=== PATIENT | male | born 1950 | race Caucasian/White ===

== ENCOUNTER 2017-02-08 18:03 | Inpatient (IN) ==
[2017-02-08] MEDS ORDERED: OXYCONTIN PO PRN (19:00)
[2017-02-08 19:48] LABS: MANUAL DIFF NEEDED? NO
[2017-02-08 19:55] LABS: BASO% 0.5 % (0.0-0.8); EOS# 0.01 X1000 (0.0-0.7); EOS% 0.3 % (0.0-10.0); HEMATOCRIT 29.2 % (42.0-52.0); HEMOGLOBIN 9.6 g/dL (14.0-18.0); LYMPH# 0.72 X1000 (1.2-3.4); LYMPH% 18.5 % (20.5-51.1); MCH 34.2 PG (27-31); MCHC 32.9 g/dL (33-37); MCV 103.9 FL (81-99); MONO# 0.61 X1000 (0.11-0.59); MONO% 15.6 % (1.7-9.3); MPV 9.3 FL (7.4-10.4); NEUT% 65.1 % (42.2-75.2); PLT 84 X1000 (130-400); RBC 2.81 XMIL (4.7-6.1)
[2017-02-08 20:09] LABS: ALBUMIN 3.5 g/dL (3.5-5.0); CALCIUM 8.1 mg/dL (8.8-10.2); POTASSIUM 4.8 mmol/L (3.5-5.1); TOTAL BILIRUBIN 0.24 mg/dL (0.20-1.00); TOTAL PROTEIN 5.9 g/dL (6.3-8.3)
[2017-02-08] MEDS: NEURONTIN PO SCH (21:35)
[2017-02-08] MEDS: FLEXERIL PO SCH (21:35)
[2017-02-08] MEDS: GLUCOSAMINE 500 MG/CHONDROITIN 400 MG PO SCH (21:35)
[2017-02-08] MEDS: BENTYL PO SCH ×2 (21:35→22:26)
[2017-02-08] MEDS: IMODIUM PO SCH (21:35)
[2017-02-08] MEDS: LIPITOR PO SCH (21:36)
[2017-02-08] MEDS: CALTRATE 600 + D PO SCH (21:36)
[2017-02-08] MEDS: LEVAQUIN 750 MG/D5W 750 MG/150 ML IVPB IV SCH (21:37)
[2017-02-08] MEDS: ZOSYN 4.5 GM/NS 4.5 GM/100 ML IVPB IV SCH (22:27)
[2017-02-08] MEDS: DUONEB (A & A) INH SCH (22:56)
[2017-02-08] MEDS: ADVAIR 100/50 DISKUS INH SCH (22:56)
[2017-02-08 22:58] LABS: URINE CULTURE NEEDED? NO; URINE MICRO REVIEW NEEDED? NO; URINE SOURCE CLEAN CATCH
[2017-02-08 23:00] LABS: BILIRUBIN URINE NEGATIVE (NEGATIVE); BLOOD URINE NEGATIVE (NEGATIVE); COLOR YELLOW; GLUCOSE URINE NEGATIVE (NEGATIVE); LEUKOCYTES URINE NEGATIVE (NEGATIVE); NITRITE URINE NEGATIVE (NEGATIVE); PH URINE 5.5; PROTEIN URINE 50 mg/dL (NEGATIVE); SP GRAVITY URINE 1.018; TURBIDITY URINE CLEAR (CLEAR); UROBILINOGEN URINE NORMAL (NORMAL)
[2017-02-08 23:01] LABS: UR EPITHELIAL CELLS <10 /HPF (<10); URINE BACTERIA NEGATIVE /HPF; URINE RBC <10 /HPF (<10); URINE WBC <10 /HPF (<10)
[2017-02-09] MEDS: ZOSYN 4.5 GM/NS 4.5 GM/100 ML IVPB IV SCH ×4 (02:16→22:11)
[2017-02-09] MEDS: DUONEB (A & A) INH SCH ×5 (03:37→21:55)
[2017-02-09] MEDS: BENTYL PO SCH ×4 (06:39→22:10)
[2017-02-09 09:09] LABS: CALCIUM 8.1 mg/dL (8.8-10.2)
[2017-02-09 09:13] LABS: MANUAL DIFF NEEDED? NO
[2017-02-09] MEDS: ADVAIR 100/50 DISKUS INH SCH ×2 (09:16→20:24)
[2017-02-09 09:18] LABS: POTASSIUM 5.5 mmol/L (3.5-5.1)
[2017-02-09 09:19] LABS: BASO% 0.2 % (0.0-0.8); HEMATOCRIT 27.4 % (42.0-52.0); LYMPH% 13.5 % (20.5-51.1); MCH 34.4 PG (27-31); MCHC 32.8 g/dL (33-37); MCV 104.6 FL (81-99); MONO# 0.45 X1000 (0.11-0.59); MONO% 10.2 % (1.7-9.3); MPV 9.4 FL (7.4-10.4); NEUT% 76.1 % (42.2-75.2); PLT 77 X1000 (130-400); RBC 2.62 XMIL (4.7-6.1)
[2017-02-09] MEDS: NS 1,000 ML IV SCH ×2 (10:56→20:50)
[2017-02-09] MEDS: IMODIUM PO SCH ×3 (10:56→16:08)
[2017-02-09] MEDS: AVODART PO SCH (10:56)
[2017-02-09] MEDS: GLUCOSAMINE 500 MG/CHONDROITIN 400 MG PO SCH ×2 (10:57→22:09)
[2017-02-09] MEDS: PROSCAR PO SCH (10:57)
[2017-02-09] MEDS: CALTRATE 600 + D PO SCH ×2 (10:57→22:09)
[2017-02-09] MEDS: VALTREX PO SCH (10:57)
[2017-02-09] MEDS: VITAMIN B-12 PO SCH (10:57)
[2017-02-09] MEDS: NEURONTIN PO SCH ×3 (10:57→22:13)
[2017-02-09] MEDS: MOBIC PO SCH (10:57)
[2017-02-09] MEDS: NEXIUM PO SCH (10:57)
--- NOTE | 2017-02-09 14:03 | HISTORY AND PHYSICAL ---
CHIEF COMPLAINT: Cough and fever. HISTORY OF PRESENT ILLNESS: Mr. Jed Nowak is a 66-year-old gentleman who is well known to me. 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 He has had previous bone marrow transplant and is currently undergoing chemotherapy treatments with Dr. Mandel. He had his last chemotherapy treatment on 02/05/2017. Since that time, he has been with complaint of a cough productive of greenish sputum, pleuritic chest pain, worse with deep inspiration and paroxysms of cough, hard shaking rigors, nausea, vomiting, and fever as high as 102 degrees. His initial chest x-ray demonstrated no obvious infiltrates. He has a longstanding history of chronic orthostatic hypotension secondary to autonomic dysfunction. He has taken Midodrine in the past. His blood pressure was low in my office. The family reported that there had been no mental status changes. He denied any dysuria, increased urinary frequency, low back pain, or other signs of infection. PAST MEDICAL HISTORY: As above. PAST SURGICAL HISTORY: Cervical fusion, lumbar fusion, bilateral cataract surgery, placement of a port. ALLERGIES: No known drug allergies. FAMILY HISTORY: Noncontributory. SOCIAL HISTORY: He is a former smoker. He does not consume alcoholic beverages. He is and lives with his spouse. MEDICATIONS: Lipitor 10 mg at bedtime; Caltrate 600+D b.i.d.; vitamin B12 at 1000 mcg daily; Flexeril 10 mg at bedtime p.r.n. spasms; Bentyl 10 mg p.o. a.c. and at bedtime; Avodart 0.5 mg daily; vitamin D 50,000 units weekly; Nexium 40 mg daily; Proscar 5 mg daily; Neurontin 600 mg t.i.d.; Imodium 2 mg p.o. t.i.d.; Mobic 7.5 mg daily; Valtrex 500 mg daily. REVIEW OF SYSTEMS: Constitutional: He denies any recent weight gain or weight loss. HEENT: He wears glasses. Cardiovascular: No chest pain, palpitations, or anginal equivalents. Pulmonary: No shortness of breath, PND, orthopnea. Gastrointestinal: No reflux, dysphagia, melena, hematochezia, change in bowel habits, or rectal bleeding. Endocrine: No polyuria. No polydipsia. No cold or heat intolerance. Skin: No easy bruisability. Genitourinary: He has occasional episodes of nocturia. Musculoskeletal: No muscle pain. Neurologic: No migraines or seizures. Psychiatric: No history of depression. PHYSICAL EXAMINATION: GENERAL: This is a chronically ill-appearing 66-year-old gentleman in no apparent distress. VITAL SIGNS: Temperature 100.5 degrees, pulse 62, respirations 20, blood pressure 105/55. HEENT: Fundi with sharp discs and vessels. Pupils equal, round, reactive to light. Extraocular eye movements intact. NECK: Supple. No masses, JVD, or bruits. CARDIOVASCULAR: Regular rate and rhythm. LUNGS: Diffuse end-expiratory wheezing with forced expiration, with distinct coarse rhonchi. ABDOMEN: Soft, nontender, with active bowel sounds. EXTREMITIES: Without edema. SKIN: No palpable purpura. GENITOURINARY AND RECTAL: Examinations deferred. NEUROLOGIC: He has decreased light touch in the distal extremities bilaterally. ASSESSMENT AND PLAN: 1. Febrile neutropenia. Given the recent chemotherapy treatment and high spiking fevers, I am going to admit him to [facility]. I will begin normal saline at 75 mL/hour and will begin broad-spectrum antibiotics including Zosyn and Levaquin pending urinalysis, urine culture, blood cultures x2, and a chest x-ray. We will continue antibiotics until he is afebrile for at least 24 hours and cultures return as negative. 2. Acute asthma exacerbation with tracheobronchitis. We will continue Advair 100/50 two puffs b.i.d., broad-spectrum antibiotics, and DuoNeb nebulizer treatments. 3. Type 2 [id number] diabetes mellitus complicated by polyneuropathy. We will place him on patterned sugars and a Humulin R sliding scale. I will resume an 1800 calorie ADA diet. Given his comorbid conditions and clinical presentation, I believe that hospitalization is absolutely necessary. Attempting to treat him as an outpatient, given the fever and low blood pressure, could lead to adverse consequences such as sudden . I anticipate that he will be in the hospital for at least 2 midnights and I will therefore place him in inpatient status. cc: Lexi Crawford MD
[2017-02-09] MEDS: LEVAQUIN 750 MG/D5W 750 MG/150 ML IVPB IV SCH (19:11)
[2017-02-09] MEDS: FLEXERIL PO SCH (22:10)
[2017-02-09] MEDS: LIPITOR PO SCH (22:10)
[2017-02-10] MEDS: ZOSYN 4.5 GM/NS 4.5 GM/100 ML IVPB IV SCH ×4 (01:10→18:07)
[2017-02-10] MEDS: NS 1,000 ML IV SCH ×4 (01:10→20:00)
[2017-02-10] MEDS ORDERED: DUONEB (A & A) ONE (03:01)
[2017-02-10] MEDS: BENTYL PO SCH ×4 (06:39→19:59)
[2017-02-10] MEDS: CALTRATE 600 + D PO SCH ×2 (09:17→19:59)
[2017-02-10] MEDS: AVODART PO SCH (09:17)
[2017-02-10] MEDS: GLUCOSAMINE 500 MG/CHONDROITIN 400 MG PO SCH ×2 (09:17→19:59)
[2017-02-10] MEDS: NEXIUM PO SCH (09:18)
[2017-02-10] MEDS: VITAMIN B-12 PO SCH (09:18)
[2017-02-10] MEDS: IMODIUM PO SCH ×3 (09:18→18:06)
[2017-02-10] MEDS: MOBIC PO SCH (09:18)
[2017-02-10] MEDS: PROSCAR PO SCH (09:18)
[2017-02-10] MEDS: VALTREX PO SCH (09:18)
[2017-02-10] MEDS: NEURONTIN PO SCH ×3 (09:18→18:06)
[2017-02-10] MEDS: DUONEB (A & A) INH SCH ×3 (09:50→23:00)
[2017-02-10] MEDS: ADVAIR 100/50 DISKUS INH SCH ×2 (09:50→20:01)
--- NOTE | 2017-02-10 12:28 | PROGRESS NOTE ---
DATE: 02/10/2017 SUBJECTIVE: Mr. Nowak has a longstanding history of multiple myeloma for which he is undergoing chemotherapy treatments. He had his last chemo treatment on Sunday. On , he spiked a fever to 102 degrees. He had a persistent cough productive of yellowish-green sputum, pleuritic chest pain, and hard shaking rigors. Clinically, he continues to improve. He has been afebrile for 48 hours. His white count is up to 4400. He continues with a cough productive of clear to greenish sputum and pleuritic chest pain. He is maintaining O2 sats of 93% to 95% on room air. Blood cultures are negative. OBJECTIVE: Vital signs: Temperature 99.0, pulse 89, respirations 16, BP 142/70. CV: Regular rate and rhythm. Lungs: Clear. Abdomen: Soft, nontender, with active bowel sounds. ASSESSMENT AND PLAN: 1. Febrile neutropenia. I will recheck a CBC and BMP in the morning. If he remains afebrile and all of his cultures are negative, we will plan on discharge him home tomorrow. Given a low- grade fever this morning, I do not feel comfortable sending him home, as he is an immunocompromised host, and I believe that additional IV antibiotic therapy is indicated. 2. Hypertension. His blood pressure is beginning to trend upward. I will resume metoprolol 25 mg daily. cc: Lexi Crawford MD
[2017-02-10] MEDS: TOPROL XL PO SCH (14:28)
[2017-02-10] MEDS: LEVAQUIN 750 MG/D5W 750 MG/150 ML IVPB IV SCH (18:08)
[2017-02-10] MEDS: FLEXERIL PO SCH (19:59)
[2017-02-10] MEDS: LIPITOR PO SCH (19:59)
[2017-02-11] MEDS: ZOSYN 4.5 GM/NS 4.5 GM/100 ML IVPB IV SCH ×2 (01:40→06:09)
[2017-02-11] MEDS: DUONEB (A & A) INH SCH ×2 (03:07→09:37)
[2017-02-11] MEDS: NS 1,000 ML IV SCH ×2 (06:09)
[2017-02-11] MEDS: BENTYL PO SCH (06:09)
[2017-02-11 07:00] LABS: MANUAL DIFF NEEDED? NO
[2017-02-11 07:33] LABS: BASO% 0.3 % (0.0-0.8); EOS% 2.8 % (0.0-10.0); HEMATOCRIT 28.4 % (42.0-52.0); HEMOGLOBIN 9.1 g/dL (14.0-18.0); LYMPH# 0.77 X1000 (1.2-3.4); LYMPH% 21.5 % (20.5-51.1); MCH 33.1 PG (27-31); MCV 103.3 FL (81-99); MONO# 0.43 X1000 (0.11-0.59); MPV 9.3 FL (7.4-10.4); NEUT% 63.4 % (42.2-75.2); PLT 83 X1000 (130-400); RBC 2.75 XMIL (4.7-6.1)
[2017-02-11 07:43] LABS: AGAP 12; BUN 12 mg/dL (8-22); CALCIUM 7.9 mg/dL (8.8-10.2); CHLORIDE 112 mmol/L (98-107); COSMO 286; POTASSIUM 4.5 mmol/L (3.5-5.1); SODIUM 144 mmol/L (136-145); TCO2 20 mmol/L (25-35)
[2017-02-11 07:58] VITALS: BP 155/94
[2017-02-11] MEDS: TOPROL XL PO SCH (08:55)
[2017-02-11] MEDS: IMODIUM PO SCH (08:55)
[2017-02-11] MEDS: VALTREX PO SCH (08:55)
[2017-02-11] MEDS: CALTRATE 600 + D PO SCH (08:55)
[2017-02-11] MEDS: AVODART PO SCH (08:56)
[2017-02-11] MEDS: GLUCOSAMINE 500 MG/CHONDROITIN 400 MG PO SCH (08:56)
[2017-02-11] MEDS: PROSCAR PO SCH (08:56)
[2017-02-11] MEDS: NEURONTIN PO SCH (08:56)
[2017-02-11] MEDS: VITAMIN B-12 PO SCH (08:56)
[2017-02-11] MEDS: NEXIUM PO SCH (08:56)
[2017-02-11] MEDS: MOBIC PO SCH (08:57)
[2017-02-11] MEDS: ADVAIR 100/50 DISKUS INH SCH (09:37)
[2017-02-11] MEDS ORDERED: BENTYL PO SCH (10:35)
[2017-02-11] MEDS ORDERED: HEPARIN ONE (11:05)
[2017-02-11] MEDS ORDERED: LEVAQUIN PO SCH (18:00)
[2017-02-12] MEDS ORDERED: VITAMIN D PO SCH (09:00)
== END 2017-02-11 12:07 | disposition home or self-care (01) ==
LOC: 3N 18:36
PROVIDERS: ADMIT Internal Medicine; ATTEND Internal Medicine

== ENCOUNTER 2019-02-24 15:51 | Inpatient (IN) ==
[2019-02-24] MEDS ORDERED: TYLENOL PO PRN ×2 (16:51→20:01)
[2019-02-24] MEDS ORDERED: PHENERGAN IV PRN (16:51)
[2019-02-24] MEDS ORDERED: SODIUM CHLORIDE 0.9% INJ PRN (16:51)
[2019-02-24] MEDS ORDERED: NORCO-10 PO PRN (16:51)
[2019-02-24] MEDS ORDERED: NS 1,000 ML IV ONE (16:51)
[2019-02-24] MEDS: FLAGYL 500 MG/NS 500 MG/100 ML IVPB IV SCH ×2 (18:08→22:41)
[2019-02-24 18:11] LABS: BASO# 0.05 X1000 (0.0-0.2); BASO% 1.3 % (0.0-0.8); EOS# 0.13 X1000 (0.0-0.7); EOS% 3.5 % (0.0-10.0); HEMATOCRIT 35.3 % (42.0-52.0); HEMOGLOBIN 11.9 g/dL (14.0-18.0); LYMPH# 1.79 X1000 (1.2-3.4); LYMPH% 47.9 % (20.5-51.1); MCH 36.1 PG (27-31); MCHC 33.7 g/dL (33-37); MONO# 1.06 X1000 (0.11-0.59); MONO% 28.3 % (1.7-9.3); NEUT# 0.71 X1000 (1.4-6.5); PLT 70 X1000 (130-400); RDW 13.2 % (11.5-14.5); WBC 3.74 X1000 (4.8-10.8)
[2019-02-24 18:15] LABS: ALB/GLOB RATIO 1.5; CALCIUM 8.8 mg/dL (8.8-10.2); CREATININE 1.5 mg/dL (0.7-1.2); POTASSIUM 4.9 mmol/L (3.5-5.1); TOTAL BILIRUBIN 0.28 mg/dL (0.20-1.00); TOTAL PROTEIN 6.7 g/dL (6.3-8.3)
[2019-02-24 18:54] LABS: ATYPICAL LYMPH 2.1 %; BANDS 7 % (0-1); EOS 1 % (1-10); LYMPHS 55 % (21-51); MONO 4 % (1-9); SEGS 31 % (42-75)
[2019-02-24] MEDS: NS 1,000 ML IV SCH (20:51)
[2019-02-24] MEDS: PROAMATINE PO SCH (20:52)
[2019-02-24] MEDS: VANCOCIN PO SCH (20:52)
[2019-02-24] MEDS: LOVENOX SUBQ SCH (20:52)
[2019-02-24] MEDS: NEURONTIN PO SCH (20:52)
[2019-02-25] MEDS: VANCOCIN PO SCH ×4 (02:42→21:47)
[2019-02-25] MEDS: FLAGYL 500 MG/NS 500 MG/100 ML IVPB IV SCH ×4 (05:18→23:54)
[2019-02-25] MEDS ORDERED: CALMOSEPTINE OINTMENT TOP PRN (09:37)
[2019-02-25] MEDS: NS 1,000 ML IV SCH ×2 (09:38→21:45)
[2019-02-25] MEDS: PROSCAR PO SCH (09:40)
[2019-02-25] MEDS: NEURONTIN PO SCH ×3 (09:40→21:47)
[2019-02-25] MEDS: VALTREX PO SCH (09:40)
[2019-02-25] MEDS: METAMUCIL PO SCH (09:40)
[2019-02-25] MEDS: PROAMATINE PO SCH ×3 (09:41→21:46)
[2019-02-25] MEDS: PATIENT'S OWN MED PO SCH (09:42)
[2019-02-25] MEDS ORDERED: CATAPRES PO ONE (12:12)
[2019-02-25] MEDS: LOVENOX SUBQ SCH (21:47)
[2019-02-26] MEDS: VANCOCIN PO SCH ×2 (03:14→09:23)
[2019-02-26] MEDS: FLAGYL 500 MG/NS 500 MG/100 ML IVPB IV SCH (04:15)
[2019-02-26 08:53] VITALS: BP 143/68
[2019-02-26] MEDS: PROSCAR PO SCH (09:23)
[2019-02-26] MEDS: VALTREX PO SCH (09:23)
[2019-02-26] MEDS: NEURONTIN PO SCH (09:23)
[2019-02-26] MEDS: METAMUCIL PO SCH (09:23)
[2019-02-26] MEDS: PROAMATINE PO SCH (09:23)
[2019-02-26] MEDS: PATIENT'S OWN MED PO SCH (09:25)
== END 2019-02-26 11:41 | disposition home or self-care (01) | DRG 373 ==
LOC: DIRADM 15:51 → 4N 16:45
PROVIDERS: ADMIT Internal Medicine; ATTEND Internal Medicine
CPT/HCPCS: 71020; 71046; 80053; 85025; 87324; 87449; A9270; J1650; J7030; S0030; S0138